=== PATIENT | female | born 1945 | race Caucasian/White ===

== ENCOUNTER 2017-02-02 18:21 | Emergency (ER) | payer MEDICARE ==
[~2017-02-02 18:21] MED LIST: ACET-3067 PO; ACET-812 PO; ATOR80TA PO; ESCI10TA PO; FEXO180T94 PO; LORA-269 PO; NAPR-56 PO; vitamin D PO
[2017-02-02 18:58] LABS: BASOPHILS # (AUTO) 0.1 X10'3 (0-0.2); BASOPHILS % (AUTO) 1.1 % (0-1); EOSINOPHILS # (AUTO) 0.3 X10'3 (0-0.9); EOSINOPHILS % (AUTO) 2.7 % (0-6); HEMATOCRIT 29.5 % (35.0-45.0); HEMOGLOBIN 9.7 g/dl (12.0-16.0); LYMPHOCYTES # (AUTO) 1.5 X10'3 (1.1-4.8); LYMPHOCYTES % (AUTO) 14.2 % (21-51); MEAN CORPUSCULAR HEMOGLOBIN 25.4 PG (27.0-31.0); MEAN CORPUSCULAR HGB CONC 32.9 % (33.0-36.5); MEAN CORPUSCULAR VOLUME 77.2 FL (78-98); MEAN PLATELET VOLUME 6.7 FL (7.4-10.4); MONOCYTES # (AUTO) 1.5 X10'3 (0-0.9); MONOCYTES % (AUTO) 14.7 % (2-12); NEUTROPHILS % (AUTO) 67.3 % (42-75); PLATELET COUNT 410 X10'3 (140-440); RED BLOOD COUNT 3.82 X10'6 (4.20-5.60); RED CELL DISTRIBUTION WIDTH 17.9 % (11.5-14.5); WHITE BLOOD COUNT 10.4 X10'3 (4.5-11.0)
[2017-02-02 19:09] LABS: INR 1.1 INR; PARTIAL THROMBOPLASTIN TIME 27 SECONDS (22-32); PROTHROMBIN TIME 11.3 SECONDS (9.0-12.0)
[2017-02-02 19:12] LABS: ALANINE AMINOTRANSFERASE 30 U/L (12-78); ALBUMIN 2.4 G/DL (3.4-5.0); ALBUMIN/GLOBULIN RATIO 0.5 (1.1-1.5); ALKALINE PHOSPHATASE 105 IU/L (46-116); ANION GAP 5 (8-16); ASPARTATE AMINO TRANSFERASE 26 U/L (10-37); BILIRUBIN,TOTAL 0.5 MG/DL (0.1-1.0); BLOOD UREA NITROGEN 19 MG/DL (7-18); BUN/CREATININE RATIO 13.1 (6.6-38.0); CHLORIDE 102 MMOL/L (99-107); CREATININE 1.45 MG/DL (0.40-0.90); GLUCOSE 143 MG/DL (70-104); POTASSIUM 4.5 MMOL/L (3.5-5.1); SODIUM 139 MMOL/L (135-145); TOTAL CARBON DIOXIDE 31.7 MMOL/L (24-32); TOTAL PROTEIN 7.2 G/DL (6.4-8.2); eGFR 36 ML/MIN
[2017-02-02 19:19] LABS: CALCIUM 14.1 MG/DL (8.5-10.1)
[2017-02-02] MEDS ORDERED: furosemide 10 MG/1 ML 10ml inj IV ONE (19:40)
[2017-02-02] MEDS ORDERED: normal saline 1000ml 1,000 ML IV SCH (19:40)
[2017-02-02] MEDS ORDERED: pamidronate disodium inj 30 MG in normal saline 250ml IV soln 250 ML IV ONE (20:25)
[2017-02-02 23:19] VITALS: BP 165/79
== END 2017-02-02 23:20 | disposition short-term general hospital (02) ==
LOC: ER 18:22
DX: E83.52 Hypercalcemia (principal); Z85.3 Personal history of malignant neoplasm of breast; Z88.1 Allergy status to other antibiotic agents; Z88.8 Allergy status to other drugs, medicaments and biological substances
CPT/HCPCS: 36415; 51702; 71250; 74176; 80053; 83970; 85025; 85610; 85730; 93005; 96361; 96374; 99285; A4315; J1940; J2430; J7030